=== PATIENT | male | born 1955 ===

== ENCOUNTER 2022-01-21 06:00 | Outpatient (RCR) | payer MEDICARE, MEDICAID, SELFPAY | END 2022-01-30 23:59 | disposition home or self-care (01) | LOC: SST 06:00 | PROVIDERS: Referring Provider Internal Medicine Geriatric Medicine; Visit Provider Internal Medicine Geriatric Medicine | DX: I69.30 Unspecified sequelae of cerebral infarction (principal) | CPT/HCPCS: 92607; 92608 ==